=== PATIENT | female | born 2000 | race Hispanic/Latino ===

== ENCOUNTER 2018-05-26 05:10 | Emergency (ER) | payer OTHER ==
[~2018-05-26] VITALS: Ht 162.6 cm; Wt 60.1 kg
[2018-05-26] MEDS ORDERED: NAPROSYN500 MG PO (06:06)
[2018-05-26 06:20] VITALS: BP 117/87
== END 2018-05-26 06:21 | disposition home or self-care (01) ==
LOC: EME 05:10
DX: S50.02XA Contusion of left elbow, initial encounter (principal); S50.311A Abrasion of right elbow, initial encounter; S80.211A Abrasion, right knee, initial encounter; Y04.2XXA Assault by strike against or bumped into by another person, initial encounter
CPT/HCPCS: 73080; 99281; 99284